=== PATIENT | male | born 1950 | race Caucasian/White ===

== ENCOUNTER 2017-01-18 09:30 | Emergency (ER) | payer OTHER ==
[~2017-01-18] VITALS: Ht 165.1 cm; Wt 105.5 kg
[~2017-01-18 09:30] MED LIST: BENADRYL25 MG PO; CARDURA2 M1 PO; PRAVACHOL10 MG PO; PROAIR HFA8.5 GM IH; SYMBICORT60 INHALAT IH; TYLENOL ARTHRI650 MG PO
[2017-01-18 10:04] LABS: HEMATOCRIT 44.4 % (38.0-50.0); MCHC 33.6 G/DL (30.0-36.0); MCV 89.5 FL (86-99); MEAN PLAT.VOLUME 8.8 uM^3 (9.0-12.4); PLATELET COUNT 180 K/uL (156-360); RBC DIS.WIDTH-CV 12.5 % (11.8-14.6); RBC DIS.WIDTH-SD 41.2 % (39-53); RED BLOOD COUNT 4.96 M/uL (4.00-5.50); WHITE BLOOD COUNT 7.9 K/uL (4.1-10.2)
[2017-01-18 10:15] LABS: CHLORIDE 107 mEq/L (99-109); POTASSIUM 4.1 mEq/L (3.7-5.4); SODIUM 140 mEq/L (136-147)
[2017-01-18 10:16] LABS: GLUCOSE 79 mg/dL (70-99)
[2017-01-18 10:18] LABS: ANION GAP 9 MEQ/L (2-14)
[2017-01-18 10:20] LABS: GFR ESTIMATE (CALCULATED) > 59 mL/min/
[2017-01-18 10:21] LABS: UREA NITROGEN (BUN) 15 mg/dL (9-23)
[2017-01-18 10:24] LABS: TROP-I INTERPRETATION NEGATIVE; TROPONIN-I < 0.01 ng/mL (0.0-0.30)
[2017-01-18 11:43] LABS: TOTAL BILIRUBIN 0.4 mg/dL (0.0-1.0)
[2017-01-18 11:44] LABS: ALKALINE PHOSPHATASE 73 IU/L (3-129)
[2017-01-18 11:47] LABS: DIRECT BILIRUBIN 0.2 mg/dL (0.0-0.3)
[2017-01-18 11:48] LABS: LIPASE 23 U/L (1.0-51.0)
[2017-01-18 12:35] LABS: D-DIMER ELISA < 150.00 ng/mLDDU (<230)
[2017-01-18] MEDS ORDERED: NAPROXEN500 MG PO (13:31)
[2017-01-18 13:44] VITALS: BP 132/74
== END 2017-01-18 13:50 | disposition home or self-care (01) ==
LOC: EME 09:30
PROVIDERS: Physician Assistant
DX: R07.89 Other chest pain (principal); M25.511 Pain in right shoulder; J44.9 Chronic obstructive pulmonary disease, unspecified; I10 Essential (primary) hypertension; Z87.891 Personal history of nicotine dependence
CPT/HCPCS: 70491; 71020; 80048; 80076; 83690; 84484; 85027; 85379; 93005; 99281; 99284; J1885; J7030

== ENCOUNTER → 2017-11-20 | Outpatient (CLI) | payer OTHER ==
[~2017-11-20] VITALS: Ht 165.1 cm; Wt 104.3 kg
[~2017-11-20] MED LIST changes: +NAPROXEN500 MG PO; +PROTONIX40 MG PO; +SLEEP AID50 MG PO
== END | disposition home or self-care (01) ==
LOC: AMB 09-29 12:00
DX: Z09 Encounter for follow-up examination after completed treatment for conditions other than malignant neoplasm (principal); Z87.19 Personal history of other diseases of the digestive system; K62.1 Rectal polyp; J44.9 Chronic obstructive pulmonary disease, unspecified; G47.33 Obstructive sleep apnea (adult) (pediatric); Z87.11 Personal history of peptic ulcer disease; K57.30 Diverticulosis of large intestine without perforation or abscess without bleeding; I10 Essential (primary) hypertension; K21.9 Gastro-esophageal reflux disease without esophagitis; Z87.891 Personal history of nicotine dependence; Z88.8 Allergy status to other drugs, medicaments and biological substances
CPT/HCPCS: 88305; 93005